=== PATIENT | male | born 1940 | race Caucasian/White ===

== ENCOUNTER 2018-12-07 06:48 | Observation (INO) | payer MEDICARE ==
[~2018-12-07] VITALS: Ht 180.3 cm; Wt 105.0 kg
[~2018-12-07 06:48] MED LIST: ACTOS45 MG PO; CEPH500C57 OR; DIGITEK0.25 MG OR; HYDROCHLOROT50 MG OR; K-DUR/KLOR-CON10 MEQ OR; LEVOTHYROXIN150 MCG OR; LEVOTHYROXIN75 MCG PO; LISINOPRIL40 MG PO; NORPACE OR; SIMVASTATIN20 MG OR; ULTRAM50 MG OR
[2018-12-07 08:02] LABS: URINE BILIRUBIN - DIPSTICK NEGATIVE (NEGATIVE); URINE BLOOD DIPSTICK TRACE-INTACT (NEGATIVE); URINE COLOR YELLOW; URINE GLUCOSE - DIPSTICK NEGATIVE (NEGATIVE); URINE KETONE NEGATIVE (NEGATIVE); URINE LEUK ESTERASE NEGATIVE (NEGATIVE); URINE NITRITE - DIPSTICK NEGATIVE (Negative); URINE PH 5.5 (4.5-8.0); URINE PROTEIN - DIPSTICK NEGATIVE (NEG-TRACE); URINE UROBILINOGEN - DIPSTICK 0.2 E.U./dL (0.2)
[2018-12-07 08:22] LABS: HEMATOCRIT 41.7 % (39.0-50.0); HEMOGLOBIN 13.8 g/dl (14.0-18.0); IMMATURE GRANULOCYTES 0.3 % (0.0-5.0); MEAN CELL VOLUME 92.5 fL CALC (80.0-100.0); MEAN CORPUSCULAR HGB 30.6 pG CALC (26.0-32.0); MEAN CORPUSCULAR HGB CONC 33.1 g/L CALC (32.0-36.0); NEUT# 6.55 thou/uL (1.82-7.42); RED BLOOD COUNT 4.51 mill/uL (4.70-6.10); RED CELL DISTRI WIDTH 14.1 % (11.5-15.5)
[2018-12-07 08:40] LABS: ALBUMIN 4.1 g/dL (3.2-5.0); ALKALINE PHOSPHATASE 67 u/l (38-126); ANION GAP 10 (6-22 (CALC)); BILIRUBIN, TOTAL 0.5 mg/dL (0.0-1.4); BUN 17 mg/dL (8-23); BUN/CREATININE RATIO 14 (12-20 (CALC)); CARBON DIOXIDE 27 mmol/l (22-30); CHLORIDE 104 mmol/l (95-108); CREATININE 1.2 mg/dL (0.7-1.3); GFR 58 ML/MIN (>=60 (CALC)); GFR FOR AFR.AMER. > 60 ML/MIN (>=60 (CALC)); SGOT/AST 34 u/l (19-48); SODIUM 137 mmol/l (137-146); TOTAL PROTEIN 6.9 g/dL (6.3-8.2)
[2018-12-07 08:43] LABS: DIGOXIN 0.9 ng/mL (0.8-2.0)
[2018-12-07] MEDS ORDERED: DILTIAZEM120 MG PO (11:38)
[2018-12-07] MEDS ORDERED: ASPIRIN81 MG PO (11:38)
[2018-12-07] MEDS ORDERED: ATORVASTATIN CA40 MG PO (11:40)
[2018-12-07] MEDS ORDERED: ALLOPURINOL100 MG PO (11:41)
[2018-12-07 13:45] VITALS: BP 158/83
[2018-12-07 16:00] VITALS: BP 156/81
[2018-12-07 19:04] VITALS: BP 129/69
[2018-12-07 20:29] LABS: CHOLESTEROL HDL RATIO 2.3 (<4.4 (CALC))
[2018-12-07 21:00] LABS: TSH, 3RD GENERATION 2.22 uIU/mL (0.47 - 4.68)
[2018-12-08 03:58] VITALS: BP 117/68
[2018-12-08 05:42] LABS: HEMATOCRIT 43.3 % (39.0-50.0); HEMOGLOBIN 13.9 g/dl (14.0-18.0); IMMATURE GRANULOCYTES 0.3 % (0.0-5.0); MEAN CELL VOLUME 93.1 fL CALC (80.0-100.0); MEAN CORPUSCULAR HGB 29.9 pG CALC (26.0-32.0); MEAN CORPUSCULAR HGB CONC 32.1 g/L CALC (32.0-36.0); NEUT# 6.29 thou/uL (1.82-7.42); RED BLOOD COUNT 4.65 mill/uL (4.70-6.10); RED CELL DISTRI WIDTH 14.1 % (11.5-15.5)
[2018-12-08 05:48] LABS: ALBUMIN 3.7 g/dL (3.2-5.0); ALKALINE PHOSPHATASE 68 u/l (38-126); ANION GAP 14 (6-22 (CALC)); BILIRUBIN, TOTAL 0.7 mg/dL (0.0-1.4); BUN 15 mg/dL (8-23); BUN/CREATININE RATIO 12 (12-20 (CALC)); CARBON DIOXIDE 28 mmol/l (22-30); CHLORIDE 101 mmol/l (95-108); CREATININE 1.2 mg/dL (0.7-1.3); GFR 58 ML/MIN (>=60 (CALC)); GFR FOR AFR.AMER. > 60 ML/MIN (>=60 (CALC)); SGOT/AST 29 u/l (19-48); SODIUM 139 mmol/l (137-146); TOTAL PROTEIN 6.1 g/dL (6.3-8.2)
[2018-12-08 06:50] LABS: TSH, 3RD GENERATION 3.7 uIU/mL (0.47 - 4.68)
[2018-12-08 08:00] VITALS: BP 126/68
[2018-12-08 08:14] LABS: CHOLESTEROL HDL RATIO 2.8 (<4.4 (CALC))
[2018-12-08 16:37] VITALS: BP 121/68
[2018-12-08 19:35] VITALS: BP 116/62
[2018-12-09 04:10] VITALS: BP 109/65
[2018-12-09 06:38] LABS: HEMATOCRIT 41.4 % (39.0-50.0); HEMOGLOBIN 13.5 g/dl (14.0-18.0); IMMATURE GRANULOCYTES 0.4 % (0.0-5.0); MEAN CELL VOLUME 93.2 fL CALC (80.0-100.0); MEAN CORPUSCULAR HGB 30.4 pG CALC (26.0-32.0); MEAN CORPUSCULAR HGB CONC 32.6 g/L CALC (32.0-36.0); NEUT# 6.17 thou/uL (1.82-7.42); RED BLOOD COUNT 4.44 mill/uL (4.70-6.10); RED CELL DISTRI WIDTH 14.2 % (11.5-15.5)
[2018-12-09 06:58] LABS: ANION GAP 10 (6-22 (CALC)); BUN 12 mg/dL (8-23); BUN/CREATININE RATIO 11 (12-20 (CALC)); CARBON DIOXIDE 29 mmol/l (22-30); CHLORIDE 103 mmol/l (95-108); CREATININE 1.1 mg/dL (0.7-1.3); GFR > 60 ML/MIN (>=60 (CALC)); GFR FOR AFR.AMER. > 60 ML/MIN (>=60 (CALC)); POTASSIUM 4.2 mmol/l (3.5-5.1); SODIUM 138 mmol/l (137-146)
[2018-12-09 07:30] VITALS: BP 114/72
[2018-12-09 09:12] VITALS: BP 114/72
[2018-12-09] MEDS ORDERED: K-DUR/KLOR-CON20 MEQ PO (12:44)
[2018-12-09] MEDS ORDERED: NORPACE OR (12:44)
[2018-12-09] MEDS ORDERED: HYDROCHLOROT50 MG OR (12:44)
[2018-12-09] MEDS ORDERED: TAMSULOSIN0.4 MG PO (12:45)
== END 2018-12-09 15:05 | disposition home health service (06) ==
LOC: ED 06:48 → ED-I 11:50 → ED 12:10 → MS2 12:11
PROVIDERS: Emergency Medicine; ADMIT Internal Medicine Geriatric Medicine; ATTEND Internal Medicine Geriatric Medicine
PROC: 0T9B70Z Drainage of Bladder with Drainage Device, Via Natural or Artificial Opening (ICD-10-PCS; principal; 2018-12-07)
DX: N40.1 Benign prostatic hyperplasia with lower urinary tract symptoms (principal); N13.8 Other obstructive and reflux uropathy; R33.8 Other retention of urine; I10 Essential (primary) hypertension; E11.9 Type 2 diabetes mellitus without complications; E78.5 Hyperlipidemia, unspecified; I25.10 Atherosclerotic heart disease of native coronary artery without angina pectoris; E03.9 Hypothyroidism, unspecified; M79.89 Other specified soft tissue disorders; K59.00 Constipation, unspecified
CPT/HCPCS: Q9967

== ENCOUNTER 2018-12-20 14:33 | Observation (INO) | payer MEDICARE ==
[~2018-12-20] VITALS: Ht 180.3 cm; Wt 100.9 kg
[~2018-12-20 14:33] MED LIST changes: +ALLOPURINOL100 MG PO; +ASPIRIN81 MG PO; +ATORVASTATIN CA40 MG PO; +DILTIAZEM120 MG PO; +K-DUR/KLOR-CON20 MEQ PO; +TAMSULOSIN0.4 MG PO
--- NOTE | 2018-12-20 14:50 | NUR ---
PATIENT TO ROOM VIA WHEELCHAIR AND PHYSICIAN NOTIFIED OF PATIENT STATUS
--- NOTE | 2018-12-20 14:51 | NUR ---
PT STATES THAT HE NOTICED SOME PBLOOD IN HIS AMBROSE CATH, AND HAS BURNING SENSATION IN HIS PENIS FOR THE PAST FEW DAYS. PT STATES THAT HE FEELS WEAK AND SHAKY STARTING THIS MORNING AFTER GOLFING. PT IS AOX4. DENIES ANY SOB, N/V C/P.
[2018-12-20 15:09] LABS: URINE BLOOD DIPSTICK LARGE (NEGATIVE); URINE COLOR YELLOW; URINE GLUCOSE - DIPSTICK NEGATIVE (NEGATIVE); URINE KETONE TRACE mg/dL (NEGATIVE); URINE PH 5.5 (4.5-8.0); URINE PROTEIN - DIPSTICK >=300 mg/dL (NEG-TRACE); URINE SPECIFIC GRAVITY 1.025
[2018-12-20 15:10] LABS: HEMATOCRIT 43.6 % (39.0-50.0); HEMOGLOBIN 14.1 g/dl (14.0-18.0); IMMATURE GRANULOCYTES 0.7 % (0.0-5.0); MEAN CELL VOLUME 92.8 fL CALC (80.0-100.0); MEAN CORPUSCULAR HGB CONC 32.3 g/L CALC (32.0-36.0); NEUT# 13.34 thou/uL (1.82-7.42); RED BLOOD COUNT 4.7 mill/uL (4.70-6.10); RED CELL DISTRI WIDTH 13.9 % (11.5-15.5)
[2018-12-20 15:15] LABS: URINE BILIRUBIN - DIPSTICK SMALL (NEGATIVE); URINE LEUK ESTERASE MODERATE (NEGATIVE); URINE NITRITE - DIPSTICK POSITIVE (Negative)
[2018-12-20 15:29] LABS: URINE BACTERIA MODERATE hpf; URINE RBC TNTC RBC/hpf (0-5); URINE SQUAMOUS EPITHELIAL CELL FEW EPI/hpf (0-FEW); URINE WBC TNTC WBC/hpf (0-5)
[2018-12-20 15:35] LABS: ALBUMIN 4.4 g/dL (3.2-5.0); BILIRUBIN, TOTAL 0.7 mg/dL (0.0-1.4); TOTAL PROTEIN 7.3 g/dL (6.3-8.2)
--- NOTE | 2018-12-20 15:36 | NUR ---
EXISTING AMBROSE PULLED, AMBROSE REPLACED PER MD ORDER
[2018-12-20 15:41] LABS: CREATININE 2.3 mg/dL (0.7-1.3); POTASSIUM 5.1 mmol/l (3.5-5.1)
--- NOTE | 2018-12-20 16:30 | NUR ---
PT RESTING ON STRETCHER, NO COMPLAINTS STATED, IV PATENT WITH FLUIDS RUNNING
--- NOTE | 2018-12-20 17:30 | NUR ---
PT RESTING ON STRETCHER, IV PATENT WITH FLUIDS GOING
--- NOTE | 2018-12-20 18:15 | NUR ---
REPORT CALLED TO ICU- LAURA AYALA ACCEPTED PT
[2018-12-20 18:30] VITALS: BP 128/64
--- NOTE | 2018-12-20 18:30 | NUR ---
male pt received from ICU bed 4 (MS OF) via stretcher accompanied by Gabino Mullen RN in stable condition; settled in bed; vital signs obtained;
--- NOTE | 2018-12-20 18:37 | NUR ---
Admission Note Report Given to: LAURA AYALA Transported by: Wheelchair X Stretcher Transported with: X Nurse Transporter X Patent IV O2 Rescue Instructor TRANSPORTED TO ICU 4 WITHOUT INCIDENT
[2018-12-20 19:39] VITALS: BP 140/72
--- NOTE | 2018-12-20 19:44 | NUR ---
BEDSIDE REPORT RECEIVED FROM JMAIE SANCHEZ. PT SITTING UP IN BED WITH AT BEDSIDE; ALERT AND ORIENTED. DENIES PAIN. RESPIRATIONS EVEN AND UNLABORED ON ROOM AIR. ADMISSION COMPLETE; ASSESSMENT COMPLETE. PT ORIENTED TO ROOM AND CALL LIGHT SYSTEM. IV FLUIDS INITATED. AMBROSE DRAINING CLEAR YELLOW URINE. PT ATE 50% OF DINNER. PLAN OF CARE DISCUSSED. PT ENCOURAGED TO VERBALIZE CONCERNS. STATES UNDERSTANDING. SAFETY MEASURES IN PLACE. CALL LIGHT WITHIN REACH.
--- NOTE | 2018-12-20 21:18 | NUR ---
ACCU CHECK 101; PT STATES THAT HE STAYS AROUND 100 AND TAKES PO MEDS AT HOME. SNACK PROVIDED AND OTHER HS MEDICATIONS ADMINSITERED.
--- NOTE | 2018-12-20 23:33 | NUR ---
PT CALLED NURSE ANXIOUS ABOUT BEING TANGLED UP IN HIS WIRES; ASSISTED PT AND EMPTIED 1550 ML OF PALE YELLOW SLIGHTLY CLOUDY URINE FROM AMBROSE. TEMPERATURE OF 99.9. REMAINS AT BEDSIDE. IV SITE APPEARS HEALTHY AND IV FLUIDS INFUSING WITHOUT DIFFICULTY. NO OTHER REQUESTS OR CONCERNS AT THIS TIME. SAFETY MEASURES IN PLACE. CALL LIGHT WITHIN REACH.
--- NOTE | 2018-12-21 02:57 | NUR ---
BLOOD PRESSURE IS DECREASING; CURRENTLY 69/56 WITH HR OF 108. OXYGEN SATURATIONS LOW AT 58% ON ROOM AIR. PT DOES NOT APPEAR IN ANY DISTRESS; RESTING WITH EYES CLOSED. RESPIRATIONS SHALLOW, EVEN AND UNLABORED. WILL CONTINUE TO MONITOR.
[2018-12-21 03:55] VITALS: BP 109/60
--- NOTE | 2018-12-21 03:56 | NUR ---
PT AWAKE AND ALERT; SITTING UP IN BED WATCHING TV. DENIES PAIN. RESPIRATIONS EVEN AND UNLABORED. VS STABLE; TEMPERATURE IS 99.5. SLIGHT SWELLING AND TENDERNESS TO IV SITE AT LAC; SITE D/C'D AND NEW SITE STARTED TO RAC. NEW SITE APPEARS HEALTHY AND IV FLUIDS INFUSING WITHOUT DIFFICULTY. PT REQUESTED SNACK; PROVIDED. NO OTHER REQUESTS AT THIS TIME. CALL LIGHT WITHIN REACH.
[2018-12-21 05:13] LABS: HEMATOCRIT 41.7 % (39.0-50.0); HEMOGLOBIN 13.5 g/dl (14.0-18.0); IMMATURE GRANULOCYTES 0.5 % (0.0-5.0); MEAN CELL VOLUME 93.3 fL CALC (80.0-100.0); MEAN CORPUSCULAR HGB 30.2 pG CALC (26.0-32.0); MEAN CORPUSCULAR HGB CONC 32.4 g/L CALC (32.0-36.0); NEUT# 7.2 thou/uL (1.82-7.42); RED BLOOD COUNT 4.47 mill/uL (4.70-6.10); RED CELL DISTRI WIDTH 13.9 % (11.5-15.5)
[2018-12-21 05:27] LABS: CREATININE 1.5 mg/dL (0.7-1.3); POTASSIUM 5.1 mmol/l (3.5-5.1)
--- NOTE | 2018-12-21 06:00 | NUR ---
PT UP TO BSC FOR BOWEL MOVEMENT WITH ONE PERSON ASSIST. SYNTHROID GIVEN AT THIS TIME; PT QUESIONED DOSE AND IS FORGETFUL WITH MEDICATIONS. STATES THAT HE TAKES PO MEDS FOR HIS DM, BUT UNABLE TO REPORT WHAT THE MED IS. ALSO SEEMS FORGETFUL AT TIMES.
--- NOTE | 2018-12-21 06:50 | NUR ---
REPORT RECVD FROM JAMIE MARTÍNEZ AT START OF SHIFT.
--- NOTE | 2018-12-21 07:10 | NUR ---
FOUND BY HOSPITAL STAFF WONDERING AROUND THE HALLS THEN TRYING TO GET INTO OB. LEFT ICU ABOUT 5 MINS BEFORE STATING SHE'D BE BACK LATER. APPEARS CONFUSED AND DISORIENTED.
[2018-12-21 07:30] VITALS: BP 115/61
--- NOTE | 2018-12-21 07:30 | NUR ---
PT AWAKE, IN BED. @BEDSIDE. DENIES PAIN AT THIS TIME. DENIES BURNING SINCE CATH AMBROSE CHANGED ON ARRIVAL. LUNG SOUNDS CLEAR, BREATHING EVEN/UNLABORED. ABD SOFT/NONTENDER, ACTIVE BS. STRONG PULSES x4. CAP REFILL -3. NO EDEMA. STRONG BOWLING BALL MARKER. FITZGERALD. A&Ox4. CLEAR YELLOW URINE DRAINING FROM CATH AMBROSE. PT STATES HE HAS AN APOINTMENT WITH DR BEAN ON 3RD FLOOR TODAY AT 0830
--- NOTE | 2018-12-21 07:52 | NUR ---
PT SITTING UP IN BED, EATING BREAKFAST. GUEST TRAY ORDERED FOR .
--- NOTE | 2018-12-21 08:17 | NUR ---
CALLED TO PTS ROOM. HE STATES DR TIGRE RESTREPO IS DELAYED AND HE WONT BE IN UNTIL [address] TOLD HIM TO GET A CONSULT FOR HIM TO SEE PT IN ICU. PT CONCERNED THAT HE'LL HAVE TO STAY IN ICU THAT LONG TODAY. WANTS TO GO HOME.
--- NOTE | 2018-12-21 08:48 | NUR ---
DR PRUETT @BEDSIDE WITH PT.
--- NOTE | 2018-12-21 09:55 | NUR ---
PT REQUEST TO WALK AROUND UNIT
--- NOTE | 2018-12-21 10:27 | NUR ---
AGAIN, BROUGHT BACK BY STAFF, FOUND LOST IN THE HALLWAYS.
--- NOTE | 2018-12-21 10:45 | NUR ---
JAIME, CASE MANAGEMENT, @BEDSIDE WITH PT & .
--- NOTE | 2018-12-21 11:34 | NUR ---
PT SITTING ON THE SIDE OF THE BED, EATING LUNCH. NO S/S OF DISTRESS. CALLBELL W/IN REACH. WILL CONTINUE TO MONITOR.
--- NOTE | 2018-12-21 12:04 | NUR ---
LEFT WITH FRIENDS
--- NOTE | 2018-12-21 12:43 | NUR ---
GAVE PT A PEN, TO DO CROSSWORD PUZZLES IN NEWSPAPER.
--- NOTE | 2018-12-21 12:47 | NUR ---
FRIENDS BROUGHT PTS BACK. PT UP TO TOILET FOR BM.
--- NOTE | 2018-12-21 14:32 | NUR ---
BROUGHT BACK TO ICU AFTER BEING FOUND WONDERING THE HALLWAYS. STATES "HER MINDS NOT ALL THERE". HE BELEIVES SHE IS GOING OUT TO SMOKE. BELEIVED TO HAVE SET OFF SMOKE DETECTORS. BATHROOM CLEANED & CLEARED FOR 'S USE. PER STAFF, PT FOUND TRYING TO BREAK INTO OB DEPT, STATING SHE WAS LOOKING FOR ROOM 204. PT ALSO FOUND WITH HER FACE PRESSED UP AGAINST WINDOW IN RT DOOR ASKING FOR HELP.
--- NOTE | 2018-12-21 15:06 | NUR ---
PHARMACY STUDENTS @BEDSIDE.
--- NOTE | 2018-12-21 15:13 | NUR ---
Spoke to patient about medications. Patient was concerned that he was not taking the correct dose of his levothyroxine. Called his PCPs office and got clarification about the dosage of levothyroxine he is taking. Reassured patient that the dose he is taking is correct. Patient acknowledged and had no further questions at this time.
[2018-12-21 15:44] VITALS: BP 104/52
--- NOTE | 2018-12-21 16:16 | NUR ---
PT UPSET. STATES HE WANTS TO GO HOME AND DISSAPOINTED DR BEAN NOT HERE AT 1530 TO EVALUATE HIM. PT STATES HE CALLED TIGRE OFFICE WHO TOLD HIM MD IS AT A DIFFERENT HOSPITAL. @BEDSIDE.
--- NOTE | 2018-12-21 16:47 | NUR ---
PT TRANSFERED TO [facility] 279 IN STABLE CONDITION. PT REFUSED WC, AMBULATED TO NEW ROOM WITH .
[2018-12-21 17:00] VITALS: BP 120/74
--- NOTE | 2018-12-21 17:10 | NUR ---
PT ARRIVED FROM ICU VIA WC WITH STAFF AND FAMILY
--- NOTE | 2018-12-21 17:45 | NUR ---
IN TO VISIT WITH PT AND SPOUSE. INFORMED PT OF THE PROCEDURE THAT NEEDS TO BE COMPLETED AT A LATER DATE. IS WANTING TO DO A CARDIAC WORKUP THEN WILL BE CLEARED FOR SURGERY PER DR. ORTEGA. PT VERBALIZED UNDERSTANDING. NOT HAPPY WITH THE OUTCOME WANTING TO GO HOME. CONTINUE TO OSBERVE AND MONITOR.
--- NOTE | 2018-12-21 19:00 | NUR ---
RECEIVED REPORT FROM DAY NURSE. PT WATCHING TV WITH AT BEDSIDE. NO NEEDS OR COMPLAINTS AT THIS TIME. AMBROSE DRAINING CLEAR YELLOW URINE TO GRAVITY. CALL GARCIA IN REACH. WILL CONTINUE TO MONITOR.
[2018-12-21 19:35] VITALS: BP 121/64
--- NOTE | 2018-12-21 20:40 | NUR ---
PT APPEARS TO BE SLEEPING AT THIS TIME. AT BEDSIDE. PT CAN BE CONFUSED AT TIME BUT QUICKLY REORIENTS. ASSESMENT COMPLETED AT THIS TIME(SEE INTERVENTIONS) LUNG SOUNDS CLEAR, HEART SOUNDS NORMAL, BOWEL SOUNDS HYPOACTIVE. NO EDEMA NOTED. IV INFUSING WITH NO PROBLEM. AMBROSE DRAINING CLEAR YELLOW URINE. NO NEEDS AT THIS TIME. CALL GARCIA IN REACH. WILL CONTINUE TO MONITOR.
--- NOTE | 2018-12-22 | NUR ---
PT APPEARS ASLEEP AT THIS TIME. RESP EVEN AND UNLABORED. CALL GARCIA IN REACH. WILL CONTINUE TO MONITOR.
--- NOTE | 2018-12-22 04:00 | NUR ---
PT RESTING IN BED APPEARS TO BE ASLEEP. NO S/S OF DISTRESS NOTED. AT BED SIDE. AMBROSE DRAINING TO GRAVITY. IV INFUSING WELL
[2018-12-22 04:47] VITALS: BP 120/71
[2018-12-22 06:10] LABS: ANION GAP 14 (6-22 (CALC)); BUN 18 mg/dL (8-23); BUN/CREATININE RATIO 14 (12-20 (CALC)); CARBON DIOXIDE 25 mmol/l (22-30); CHLORIDE 104 mmol/l (95-108); CREATININE 1.3 mg/dL (0.7-1.3); GFR 53 ML/MIN (>=60 (CALC)); GFR FOR AFR.AMER. > 60 ML/MIN (>=60 (CALC)); POTASSIUM 4.5 mmol/l (3.5-5.1); SODIUM 138 mmol/l (137-146)
[2018-12-22 06:12] LABS: HEMATOCRIT 42.1 % (39.0-50.0); HEMOGLOBIN 13.7 g/dl (14.0-18.0); IMMATURE GRANULOCYTES 0.5 % (0.0-5.0); MEAN CELL VOLUME 93.8 fL CALC (80.0-100.0); MEAN CORPUSCULAR HGB 30.5 pG CALC (26.0-32.0); MEAN CORPUSCULAR HGB CONC 32.5 g/L CALC (32.0-36.0); NEUT# 4.54 thou/uL (1.82-7.42); RED BLOOD COUNT 4.49 mill/uL (4.70-6.10); RED CELL DISTRI WIDTH 13.6 % (11.5-15.5)
[2018-12-22 07:50] VITALS: BP 133/62
--- NOTE | 2018-12-22 07:50 | NUR ---
ASSESSMENT IS COMPLETED: IV SITE IS FREE FROM REDNESS OR EDEMA. HR IS REG,PULSES ARE STRONG X4, ABD IS SOFT WITH ACTIVE BS. BREATH SOUNDS ARE CLEAR, AMBROSE INTACT. DRAINING YELLOW URINE. CONTINUE TO OSEBRVE AND MONTIOR,
[2018-12-22] MEDS ORDERED: CIPROFLOXACN250 MG PO (09:25)
--- NOTE | 2018-12-22 11:48 | NUR ---
IV SITE DISCONITNUED CATHETER INTACT. NO REDNESS OR EDEMA. DISCHARGE INSTRUCTIONS GIVEN AND VERBALIZED UNDERSTANDING FAMILY IN THE ROOM. ALL INSTRUCTIONS FOR THE STRESS TEST SET UP WITH FLYNN MATHEW'S OFFICE. INFORMED PT. CONTINUE TO LAMONT. Discharge instructions given. Patient verbalizes understanding of same. Discharged in stable condition via Wheelchair to Home with family. All belongings sent with pt.
--- NOTE | 2018-12-22 11:50 | NUR ---
URINE WAS EMPTIED AMBROSE BAG CHANGED TO LEG BAG OF 750 UA. I&O OF IV FLUID 1138
== END 2018-12-22 11:45 ==
LOC: ED 14:33 → ED-I 15:49 → ED 16:03 → ICU 16:04 → MS2 12-21 16:44
PROVIDERS: Family Medicine; ADMIT Internal Medicine; ATTEND Internal Medicine Geriatric Medicine
PROC: 0T2BX0Z Change Drainage Device in Bladder, External Approach (ICD-10-PCS; principal; 2018-12-20)
DX: N39.0 Urinary tract infection, site not specified (principal); N40.1 Benign prostatic hyperplasia with lower urinary tract symptoms; N13.8 Other obstructive and reflux uropathy; R33.8 Other retention of urine; I10 Essential (primary) hypertension; E11.9 Type 2 diabetes mellitus without complications; E78.5 Hyperlipidemia, unspecified; I25.10 Atherosclerotic heart disease of native coronary artery without angina pectoris; J44.9 Chronic obstructive pulmonary disease, unspecified; E03.9 Hypothyroidism, unspecified; M10.9 Gout, unspecified; F17.200 Nicotine dependence, unspecified, uncomplicated; B96.20 Unspecified Escherichia coli [E. coli] as the cause of diseases classified elsewhere; R53.1 Weakness; R31.9 Hematuria, unspecified; N48.89 Other specified disorders of penis; K59.00 Constipation, unspecified
CPT/HCPCS: G0378

== ENCOUNTER 2019-02-06 03:34 | Emergency (ER) | payer MEDICARE ==
[~2019-02-06] VITALS: Ht 180.3 cm; Wt 94.8 kg
[~2019-02-06 03:34] MED LIST changes: +CIPROFLOXACN250 MG PO
[2019-02-06 04:30] VITALS: BP 138/84
== END 2019-02-06 04:30 | disposition home or self-care (01) ==
LOC: ED 03:34
DX: Z48.89 Encounter for other specified surgical aftercare (principal); E11.9 Type 2 diabetes mellitus without complications; I10 Essential (primary) hypertension

== ENCOUNTER 2019-02-10 23:38 | Emergency (ER) | payer MEDICARE ==
[~2019-02-10] VITALS: Ht 180.3 cm; Wt 94.1 kg
[2019-02-11 01:18] LABS: URINE BILIRUBIN - DIPSTICK NEGATIVE (NEGATIVE); URINE BLOOD DIPSTICK LARGE (NEGATIVE); URINE COLOR YELLOW; URINE GLUCOSE - DIPSTICK NEGATIVE (NEGATIVE); URINE KETONE NEGATIVE (NEGATIVE); URINE PROTEIN - DIPSTICK TRACE mg/dL (NEG-TRACE); URINE SPECIFIC GRAVITY 1.015; URINE UROBILINOGEN - DIPSTICK 0.2 E.U./dL (0.2)
[2019-02-11 01:20] LABS: URINE LEUK ESTERASE MODERATE (NEGATIVE); URINE NITRITE - DIPSTICK POSITIVE (Negative)
[2019-02-11 01:23] LABS: URINE BACTERIA MANY hpf; URINE SQUAMOUS EPITHELIAL CELL FEW EPI/hpf (0-FEW); URINE WBC 50-100 WBC/hpf (0-5)
[2019-02-11] MEDS ORDERED: BACTRIM DS1 TAB PO (01:59)
[2019-02-11 02:21] VITALS: BP 110/78
[2019-02-11] MEDS ORDERED: TORADOL PO (11:20)
[2019-02-11] MEDS ORDERED: DOXYCYCL HYC100 MG PO (11:21)
== END 2019-02-11 02:08 | disposition home or self-care (01) ==
LOC: ED 23:38
PROVIDERS: Family Medicine
DX: N45.2 Orchitis (principal); N39.0 Urinary tract infection, site not specified; B96.5 Pseudomonas (aeruginosa) (mallei) (pseudomallei) as the cause of diseases classified elsewhere; N50.812 Left testicular pain; R50.9 Fever, unspecified

== ENCOUNTER 2019-02-11 10:03 | Emergency (ER) | payer MEDICARE ==
[~2019-02-11] VITALS: Ht 180.3 cm; Wt 94.1 kg
[~2019-02-11 10:03] MED LIST changes: +BACTRIM DS1 TAB PO
[2019-02-11] MEDS ORDERED: TORADOL PO (11:20)
[2019-02-11] MEDS ORDERED: DOXYCYCL HYC100 MG PO (11:21)
[2019-02-11 14:38] VITALS: BP 121/67
== END 2019-02-11 14:38 | disposition home or self-care (01) ==
LOC: ED 10:03
DX: N45.2 Orchitis (principal); N50.812 Left testicular pain